=== PATIENT | female | born 1995 ===

== ENCOUNTER 2018-12-27 19:03 | Emergency (ER) | payer BC, OTHER ==
[2018-12-27 19:25] VITALS: BP 92/55
--- NOTE | 2018-12-27 19:39 | UC ---
Respiratory Complaint HPI - HPI Summary HPI Summary: Patient is a healthy 23-year-old female here with URI symptoms. Patient's had 5 days of sore throat, nasal congestion, mild cough. Patient's had no fever, chills, vomiting, diarrhea, inability to swallow, change in voice. Patient is up-to-date on vaccines. Patient has no sick contacts. Medications reviewed - History of Current Complaint Chief Complaint: UCRespiratory Stated Complaint: COLD, SINUS ISSUES Time Seen by Provider: 12/27/18 19:20 Hx Obtained From: Patient Hx Last Menstrual Period: LAST WEEK NOVEMBER Onset/Duration: Gradual Onset Pain Intensity: 2 - Allergies/Home Medications Allergies/Adverse Reactions: Allergies Allergy/AdvReac Type Severity Reaction Status Date / Time soy Allergy Hives Verified 12/27/18 19:25 environmental Allergy Intermediate Congestion Uncoded 12/27/18 19:25 Home Medications: Home Medications D-Methorphan/PE/Acetaminophen [Vicks Dayquil Cold & Flu 10-5-325 mg/15Ml] 1 liq PO ONCE PRN 12/27/18 [History Confirmed 12/27/18] PMH/Surg Hx/FS Hx/Imm Hx Previously Healthy: Yes - Surgical History Surgical History: None - Family History Known Family History: Positive: Respiratory Disease - asthma, Non-Contributory Negative: Cardiac Disease, Hypertension, Diabetes - Social History Alcohol Use: None Substance Use Type: None Smoking Status (MU): Never Smoked Tobacco Review of Systems All Other Systems Reviewed And Are Negative: Yes Constitutional: Negative: Fever, Chills Skin: Negative: Rash Eyes: Negative: Drainage ENT: Positive: Sore Throat, Nasal Discharge, Sinus Congestion Respiratory: Positive: Cough. Negative: Shortness Of Breath Cardiovascular: Negative: Palpitations, Chest Pain Gastrointestinal: Negative: Abdominal Pain, Vomiting, Diarrhea Physical Exam - Summary Physical Exam Summary: Vital Signs Reviewed: Yes A+Ox3, no distress Eyes: Conjunctiva Clear, PERRL. EOM intact and full ENT: Hearing grossly normal TM x 2 clear, moist, uvula midline, no exudate, no erythema Neck: Positive: Supple Respiratory: Positive: No respiratory distress, No accessory muscle use + CTA throughout no w/r Cardiovascular: RRR nl s1, s2 no m/r CBT <2 sec abd soft + BS nt/nd no guarding, no distension Musculoskeletal Exam: DUPREE x 4 without difficulty Strength Intact, ROM Intact Neurological: Positive: Alert, + sensation throughout Psychological: Positive: Normal Response To Family Skin: no rash, no ecchymosis Vital Signs: Initial Vital Signs Temp 97.9 F 12/27/18 19:16 Pulse 80 12/27/18 19:16 Resp 16 12/27/18 19:16 BP 92/55 12/27/18 19:16 Pulse Ox 98 12/27/18 19:16 Respiratory Course/Dx - Course Course Of Treatment: Patient is here with symptoms consistent with viral pharyngitis. Patient is overall well-appearing with no vital signs. Patient's symptoms are not consistent with strep pharyngitis. Patient had monopharyngitis before. Patient was educated on conservative management of her symptoms and was comfortable with discharge. - Differential Dx/Diagnosis Differential Diagnosis/HQI/PQRI: Bronchitis, Influenza, Laryngitis, Sinusitis, Other - Pharyngitis Provider Diagnosis: Viral pharyngitis Discharge - Sign-Out/Discharge Documenting (check all that apply): Patient Departure All imaging exams completed and their final reports reviewed: No Studies - Discharge Plan Condition: Stable Disposition: HOME Patient Education Materials: Pharyngitis (ED) Forms: *Work Release Referrals: No Primary Care Phys,NOPCP [Primary Care Provider] - Additional Instructions: Please start drinking warm tea and soup for your throat Please start ibuprofen for pain Please return immediately if he have worsening fever, inability to swallow, any other concerning symptoms - Billing Disposition and Condition Condition: STABLE Disposition: Home
== END 2018-12-27 19:48 | disposition home or self-care (01) ==
LOC: UCEAST 19:03
DX: J02.8 Acute pharyngitis due to other specified organisms (principal)
CPT/HCPCS: 99211; G0463